=== PATIENT | male | born 1990 | race Caucasian/White ===

== ENCOUNTER 2017-02-10 13:12 | Emergency (ER) | payer OTHER ==
[~2017-02-10] VITALS: Ht 180.3 cm; Wt 135.2 kg
--- NOTE | 2017-02-10 13:42 | NUR ---
PT BIB SELF C/O HIGH BP AT HOME. NAD NOTED. DENIES PAIN. NO NEURO DEFICITS NOTED. RESP EVEN UNLABORED. SKIN WARM NONDIAPHORETIC. AMBULATORY WITH STEADY GAIT. IN ER BED 12.
--- NOTE | 2017-02-10 14:31 | NUR ---
Patient discharged to home in stable condition. Written and verbal after care instructions given. Patient verbalizes understanding of instruction.
[2017-02-10 14:32] VITALS: BP 130/79
== END 2017-02-10 14:32 | disposition home or self-care (01) ==
LOC: ER 13:14
DX: I10 Essential (primary) hypertension (principal); Z90.49 Acquired absence of other specified parts of digestive tract; Z88.2 Allergy status to sulfonamides
CPT/HCPCS: A4649; Z7502; Z7610